=== PATIENT | male | born 1970 | race American Indian/Alaskan Native ===

== ENCOUNTER 2017-02-16 01:34 | Emergency (ER) | payer OTHER ==
[2017-02-16] MEDS ORDERED: TYLENOL PO ONE (02:19)
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
[2017-02-16] MEDS ORDERED: FLEXERIL PO ONE (09:04)
[2017-02-16] MEDS ORDERED: TORADOL IM ONE (09:04)
[2017-02-16 10:07] VITALS: BP 130/70
== END 2017-02-16 10:07 | disposition home or self-care (01) ==
LOC: ED 01:34
DX: S89.92XA Unspecified injury of left lower leg, initial encounter (principal); M25.562 Pain in left knee; W03.XXXA Other fall on same level due to collision with another person, initial encounter; Y93.89 Activity, other specified; Y92.89 Other specified places as the place of occurrence of the external cause; Y99.8 Other external cause status
CPT/HCPCS: 29505; 73562; 96372; 99284; J1885

== ENCOUNTER 2019-01-17 08:12 | Emergency (ER) | payer SELFPAY ==
[2019-01-17 08:24] VITALS: BP 127/91
[2019-01-17] MEDS ORDERED: TORADOL IM ONE (09:02)
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
== END 2019-01-17 09:41 | disposition home or self-care (01) ==
LOC: ED 08:12
DX: M54.9 Dorsalgia, unspecified (principal); M79.10 Myalgia, unspecified site
CPT/HCPCS: 96372; 99281; J1885

== ENCOUNTER 2019-06-09 11:00 | Outpatient (CLI) | payer OTHER | END 2019-06-09 11:01 | disposition home or self-care (01) | LOC: SLR 11:00 | PROVIDERS: ATTEND Otolaryngology | DX: G47.33 Obstructive sleep apnea (adult) (pediatric) (principal); G47.419 Narcolepsy without cataplexy | CPT/HCPCS: G0399 ==

== ENCOUNTER 2019-06-26 11:00 | Outpatient (CLI) | payer OTHER | END 2019-06-26 11:01 | disposition home or self-care (01) | LOC: SLR 11:00 | PROVIDERS: ATTEND Otolaryngology | DX: G47.33 Obstructive sleep apnea (adult) (pediatric) (principal); R40.0 Somnolence | CPT/HCPCS: 95811 ==